=== PATIENT | female | born 2000 | race Caucasian/White ===

== ENCOUNTER 2021-02-09 17:25 | Emergency (ER) | payer OTHER ==
[2021-02-09 17:31] VITALS: BP 123/79; PULSE 85; TEMP 99.2; BMI 32.5
== END 2021-02-09 18:52 | disposition home or self-care (01) ==
LOC: JERFT 17:25
PROC: 0H98XZZ Drainage of Buttock Skin, External Approach (ICD-10-PCS; principal; 2021-02-09)
DX: L02.31 Cutaneous abscess of buttock (principal)
CPT/HCPCS: 10060; 99282-25

== ENCOUNTER 2023-01-05 09:52 | Emergency (ER) | payer OTHER ==
[2023-01-05 10:11] VITALS: BP 150/87; PULSE 103; RESP 16; TEMP 98.4; BMI 32.5
[2023-01-05] MEDS ORDERED: predniSONE 20 MG TABLET (UD) PO ONE (10:53)
[2023-01-05] MEDS ORDERED: predniSONE 20 MG TABLET (UD) ONE (11:10)
== END 2023-01-05 11:41 | disposition home or self-care (01) ==
LOC: JERFT 09:52 → JER 09:52 → JERFT 11:41
DX: G51.0 Bell's palsy (principal)
CPT/HCPCS: 36415; 86618; 99283-25